=== PATIENT | female | born 1995 ===

== ENCOUNTER 2020-09-25 21:44 | Emergency (ER) | payer OTHER ==
[~2020-09-25] VITALS: Ht 165.1 cm; Wt 81.8 kg
[2020-09-25 22:06] VITALS: BP 142/84
== END 2020-09-25 22:14 | disposition left against medical advice (07) ==
LOC: EMS 21:44
DX: N93.9 Abnormal uterine and vaginal bleeding, unspecified (principal)

== ENCOUNTER 2023-04-22 09:53 | Inpatient (IN) | payer MEDICAID, OTHER ==
[~2023-04-22] VITALS: Ht 170.2 cm; Wt 88.5 kg
[2023-04-22 10:58] LABS: COVID AG,FIA SOURCE NASOPHARYNGEAL
[2023-04-22 10:58] LABS: BASOPHILS % (AUTO) 0.7 % (0.0-2.0); EOSINOPHILS % (AUTO) 1.8 % (1.0-6.0); HEMATOCRIT 37.8 % (36-46); HEMOGLOBIN 11.9 g/dL (12.0-16.0); LYMPHOCYTES # (AUTO) 1.7 K/uL (1.0-4.8); LYMPHOCYTES % (AUTO) 20.1 % (22.0-44.0); MEAN CORPUSCULAR HEMOGLOBIN 22.9 pg (26.0-34.0); MEAN CORPUSCULAR HGB CONC 31.4 G/dL (31.0-37.0); MEAN CORPUSCULAR VOLUME 73 fL (80-100); MONOCYTES # (AUTO) 0.7 K/uL (0.1-1.0); MONOCYTES % (AUTO) 8.8 % (2.0-9.0); NEUTROPHILS # (AUTO) 5.8 K/uL (1.8-7.7); NEUTROPHILS % (AUTO) 68.6 % (40.0-70.0); PLATELET COUNT (AUTO) 252 K/uL (150-450); RED BLOOD CELL COUNT(AUTO) 5.18 MIL/uL (4.00-5.20); RED CELL DISTRIBUTION WIDTH 21.3 % (11.5-14.5)
[2023-04-22 11:08] LABS: ANION GAP 6 mmol/L (8-16); CALCIUM, TOTAL 9.2 mg/dL (8.8-10.5); CARBON DIOXIDE 29 mmol/L (22-29); CHLORIDE 104 mmol/L (98-107); CREATININE 0.99 mg/dL (0.60-1.30); GLOMERULAR FILTR. RATE CALC > 60 mL/min (>60); GLUCOSE,RANDOM 82 mg/dL (70-110); POTASSIUM 4.1 mmol/L (3.5-5.1); SODIUM SERUM 139 mmol/L (136-145)
[2023-04-22 11:14] LABS: ALBUMIN 3.8 g/dL (3.4-5.0); ALKALINE PHOSPHATASE 81 U/L (46-116); ASPARTATE AMINOTRANSFERASE 17 U/L (15-37); BILIRUBIN,TOTAL 0.1 mg/dL (0.1-1.0)
[2023-04-22 11:22] LABS: ALANINE AMINOTRANSFERASE 20 U/L (12-78)
[2023-04-22] MEDS ORDERED: QUEtiapine FUMARATE 100 MG TABLET PO ONE (11:45)
[2023-04-22 12:07] LABS: AMPHET/METH SCREEN,URINE POSITIVE (NEGATIVE); BARBITURATE SCREEN, URINE NEGATIVE (NEGATIVE); BENZODIAZEPINES SCREEN,URINE NEGATIVE (NEGATIVE); CANNABINOID SCREEN,URINE POSITIVE (NEGATIVE); COCAINE SCREEN,URINE NEGATIVE (NEGATIVE); METHADONE SCREEN, URINE NEGATIVE (NEGATIVE); OPIATE SCREEN,URINE NEGATIVE (NEGATIVE); PHENCYCLIDINE SCREEN,URINE POSITIVE (NEGATIVE)
[2023-04-22] MEDS ORDERED: LORazepam 2 MG TABLET PO PRN (12:30)
[2023-04-22] MEDS ORDERED: ZOLPIDEM TARTRATE 10 MG TABLET PO PRN (12:30)
[2023-04-22] MEDS ORDERED: HALOPERIDOL 5 MG TABLET PO PRN (12:30)
[2023-04-22 14:50] VITALS: BP 132/89; PULSE 92; RESP 18; TEMP 97.5; O2SAT 97
[2023-04-22 20:52] VITALS: BP 124/76; PULSE 72; RESP 18; TEMP 98.1; O2SAT 97
[2023-04-23] MEDS ORDERED: PETROLATUM,WHITE 28 GM JELLY TP PRN (07:00)
[2023-04-23] MEDS ORDERED: NICOTINE 14 MG/24 HOUR PATCH TD PRN (07:00)
[2023-04-23] MEDS ORDERED: IBUPROFEN 400 MG TABLET PO PRN (07:00)
[2023-04-23] MEDS ORDERED: ALBUTEROL SULFATE HFA 90 MCG/PUFF 8 GM INHALER IH PRN (07:00)
[2023-04-23] MEDS ORDERED: ACETAMINOPHEN 325 MG TABLET PO PRN (07:00)
[2023-04-23] MEDS ORDERED: LOPERAMIDE HCL 2 MG CAPSULE PO PRN (07:00)
[2023-04-23] MEDS ORDERED: DOCUSATE SODIUM 100 MG CAPSULE PO PRN (07:00)
[2023-04-23] MEDS ORDERED: CloNIDine HCL 0.1 MG TABLET PO PRN (07:00)
[2023-04-23] MEDS ORDERED: MAG HYDROX/AL HYDROX/SIMETH ES 30 ML SUSPENSION UDCUP PO PRN (07:00)
[2023-04-23] MEDS ORDERED: GuaiFENesin/D-METHORPHAN [SUGAR-FREE] 200-20MG/10 ML SYRUP UDCUP PO PRN (07:00)
[2023-04-23] MEDS ORDERED: ONDANSETRON HCL 4 MG TABLET PO PRN (07:00)
[2023-04-23] MEDS ORDERED: MAGNESIUM HYDROXIDE SUSPENSION 30 ML UDCUP PO PRN (07:00)
[2023-04-23 10:34] VITALS: BP 127/90; PULSE 75; RESP 17; TEMP 98.1; O2SAT 97
[2023-04-23] MEDS: QUEtiapine FUMARATE 200 MG TABLET PO SCH (20:42)
[2023-04-23 21:20] VITALS: RESP 19
[2023-04-24 08:00] VITALS: BP 105/76; PULSE 89; RESP 17; TEMP 97.6; O2SAT 99
[2023-04-24 08:40] LABS: THYROID STIMULATING HORMONE 1.19 uIU/mL (0.36-3.74)
[2023-04-24 11:05] LABS: CHOL/HDL RATIO 3.1 (3.9-5.7)
[2023-04-24] MEDS: QUEtiapine FUMARATE 200 MG TABLET PO SCH (20:45)
[2023-04-24 20:59] VITALS: BP 106/66; PULSE 88; RESP 18; TEMP 97.5
[2023-04-25 08:48] VITALS: BP 121/93; PULSE 75; RESP 18; TEMP 97.8; O2SAT 97
[2023-04-25] MEDS ORDERED: QUET200T PO (12:44)
[2023-04-25] MEDS ORDERED: QUET200T30 PO (20:43)
== END 2023-04-25 14:45 | disposition home or self-care (01) | DRG 750 ==
LOC: EMS 09:53 → 3EI 12:28
PROVIDERS: ADMIT Psychiatry & Neurology Psychiatry; ATTEND Psychiatry & Neurology Psychiatry
DX: F25.0 Schizoaffective disorder, bipolar type (principal); R45.851 Suicidal ideations; F41.9 Anxiety disorder, unspecified; G47.00 Insomnia, unspecified; F19.10 Other psychoactive substance abuse, uncomplicated; D64.9 Anemia, unspecified; F10.10 Alcohol abuse, uncomplicated; Z20.822 Contact with and (suspected) exposure to COVID-19; S80.211A Abrasion, right knee, initial encounter; X58.XXXA Exposure to other specified factors, initial encounter; Y93.89 Activity, other specified; Y92.89 Other specified places as the place of occurrence of the external cause; Y99.8 Other external cause status; Z79.899 Other long term (current) drug therapy; Z87.891 Personal history of nicotine dependence
CPT/HCPCS: 80053; 80061; 80307; 83036; 84443; 85025; 99285; G0480

== ENCOUNTER 2023-07-16 20:14 | Emergency (ER) | payer MEDICAID, OTHER ==
[~2023-07-16 20:14] MED LIST: QUET200T PO; QUET200T30 PO
== END 2023-07-16 21:13 | disposition left against medical advice (07) ==
LOC: EMS 20:15
DX: Z53.1 Procedure and treatment not carried out because of patient's decision for reasons of belief and group pressure (principal)